=== PATIENT | male | born 1980 | race Caucasian/White ===

== ENCOUNTER 2021-02-22 11:15 | Emergency (ER) | payer SELFPAY ==
[2021-02-22 11:20] VITALS: BP 154/98; PULSE 93; RESP 20; TEMP 36.6; O2SAT 98
[2021-02-22 11:54] LABS: Add Urine Microscopic? NO; Appearance Urine Clear (Clear); Bilirubin Urine Negative (Negative); Blood Urine Negative (Negative); Color Urine Straw (Yellow); Glucose Urine UA Negative (Negative); Ketones Urine Negative (Negative); Leukocyte Esterase Ur Negative LEU/UL (Negative); Nitrate Urine Negative (Negative); Protein Urine Negative (Negative); Urobilinogen Urine Negative mg/dL (<2.0)
[2021-02-22 11:57] LABS: Specific Grav Ur 1.003 (1.001-1.035)
--- NOTE | 2021-02-22 12:16 | PC.NURSE ---
pt denies medical hx or surgical hx. pt refuses iv or lab draw citing that it's against his roman catholic and freedom of choice. pt exhibits schizophrenia behavior.
--- NOTE | 2021-02-22 12:26 | ED.PSYCH ---
HPI - Psych General Chief Complaint: Psychiatric Symptoms Stated Complaint: anxiety Time Seen by Provider: 02/22/21 12:18 Source: patient Mode of arrival: ambulatory Limitations: clinical condition History of Present Illness HPI Narrative: 40-year-old male Patient presents with complaints of anxiety and having been unable to sleep and needing somewhere to rest He says he lives in [place] by himself and is not prescribed any medications However he tells me that he can make his own medications out of herbs, marijuana being one such herb, and that he can purify himself with lemon juice if needed by to putting it on cigarettes to remove the toxins He also mentions that 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 Related Data Home Medications Medication Instructions Recorded Confirmed No Home Medications 02/22/21 02/22/21 Allergies Allergy/AdvReac Type Severity Reaction Status Date / Time No Known Allergies Allergy Verified 02/22/21 12:20 Review of Systems Constitutional: Constitutional: Denies fatigue and Denies weakness Cardiovascular: Cardiovascular: Denies chest pain Respiratory: Respiratory: Denies cough and Denies dyspnea Gastrointestinal: Gastrointestinal: Denies vomiting Neurologic: Denies headache(s), Denies numbness and Denies weakness Psychiatric: Psychiatric: Reports abnormal sleep pattern, Reports anxiety, Denies auditory hallucinations, Denies visual hallucinations, Denies homicidal ideation and Denies suicidal ideation PMFSH Social History Social History Substance use type: marijuana, crack/cocaine, amphetamines and prescription drug Exam Const: General: no acute distress and alert Orientation/consciousness: patient oriented x3 (alert) Other: Disheveled HENMT: Head: normal to inspection, normocephalic, atraumatic, no contusions, no hematomas and no lacerations Ears: external ears normal General nose exam: no epistaxis Eyes: Conjunctivae: conjunctivae normal Pupils: Equal, round and reactive pupils present EOM: EOMs intact bilaterally Neck: Neck: supple and no JVD Resp: Effort & Inspection: normal respiratory effort and not labored Auscultation: clear to auscultation bilaterally, no rales, no rhonchi, no wheezes and other (BS =) Cardio: Rate: regular rate Rhythm: regular rhythm Heart sounds: no murmurs GI: GI Palp: Yes Soft to palpation and No Tenderness to palpation present (GI) Skin: General skin exam: normal color and no rashes or lesions noted Neuro: General: moves all extremities Speech: normal speech Gait exam (Neuro): Normal gait present Other: Alert Extrem: General: normal to inspection Psych: Appearance: disheveled Thought content: No Suicidality present, No Homicidality present, Yes delusions and No Hallucination(s) present Course Course Emergency Course: Eloped while medical work-up in progress Vital Signs Vital signs: Vital Signs Temperature 36.6 C 02/22/21 11:20 Pulse Rate 93 02/22/21 11:20 Respiratory Rate 20 02/22/21 11:20 Blood Pressure 154/98 H 02/22/21 11:20 Pulse Oximetry 98 02/22/21 11:20 Temperature 36.6 C 02/22/21 11:20 Pulse Rate 93 02/22/21 11:20 Respiratory Rate 20 02/22/21 11:20 Blood Pressure 154/98 H 02/22/21 11:20 Pulse Oximetry 98 02/22/21 11:20 MDM - Psych Differential Diagnosis Differential diagnosis: Likely other (bipolar vs cps) Lab Data Attestation: I reviewed the patient's lab results. Labs: Lab Results 02/22/21 02/22/21 Range/Units 11:35 11:35 Urine Color Straw (Yellow) Urine Appearance Clear (Clear) Urine pH 7.0 (5.0-9.0) Ur Specific [place] 1.003 (1.001-1.035) Urine Protein Negative (Negative) mg/dL Urine
--- NOTE | 2021-02-22 12:29 | PC.NURSE ---
1225-pt verbalizing that he wishes to leave to stop a terrorist attack and to pick up attendant the prescription that he wrote for himself. pt informed that he just saw the ed physician and that the physician will be writing orders. pt encouraged to stay in room #1 and find out the plan of care before he decides to leave without treatment. ed physician notified. 1233-pt asked again to stay and receive treatment (pt standing in [place] near registration staff). pt states that he no longer needs medication because he has already written his own prescription at [facility]. 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 ed physician made aware that pt wishes to leave.
--- NOTE | 2021-02-22 12:30 | PC.NURSE ---
pt seen amb out of ED by this RN. pt asked if he was leaving. pt replied, I gotta go stop the pandemic and winked.
[2021-02-22 14:40] LABS: Amphetamine Screen Urine Negative (Negative); Barbiturate Screen Urine Negative (Negative); Benzodiazepines Screen Urine Negative (Negative); Cannabinoid Screen Urine Negative (Negative); Cocaine Screen Urine Negative (Negative); Methadone Screen Urine Negative (Negative); Opiate Screen Urine Negative (Negative); Phencyclidine Screen Urine Negative (Negative)
== END 2021-02-22 12:35 | disposition left against medical advice (07) ==
PROVIDERS: Emergency Provider Emergency Medicine
DX: F22 Delusional disorders (principal)
CPT/HCPCS: 80307; 81003; 99283